=== PATIENT | female | born 1985 | race Caucasian/White ===

== ENCOUNTER 2020-12-15 07:04 | Day surgery (SDC) | payer BC ==
[2020-12-15] MEDS ORDERED: FENTANYL CITR 250 MCG/5 ML ONE (07:28)
[2020-12-15] MEDS ORDERED: GLYCOPYRROLATE 0.2 MG/ML SYR ONE (07:28)
[2020-12-15] MEDS ORDERED: propofoL 200 MG/20 ML VIAL IV ONE (07:28)
[2020-12-15] MEDS ORDERED: MIDAZOLAM HCL 2 MG/2 ML INJ ONE (07:28)
[2020-12-15] MEDS ORDERED: ONDANSETRON 4 MG/2 ML VIAL ONE (07:35)
[2020-12-15] MEDS ORDERED: ROCURONIUM 50 MG/5 ML VIAL IV ONE (07:37)
[2020-12-15] MEDS ORDERED: LIDOCAINE 2% MPF 5 ML VIAL ONE (07:38)
[2020-12-15] MEDS ORDERED: CEFOXITIN/SWI 1gm 1 GM/10 ML SYR ONE (07:47)
[2020-12-15] MEDS ORDERED: Ringers Lactate 1,000 ML IV ONE (07:47)
[2020-12-15] MEDS ORDERED: EPHEDRINE SULF 50 MG/ML VIAL ONE (08:35)
--- NOTE | 2020-12-15 09:06 | P.BOP ---
Preoperative diagnosis: acute cholecystitis, symptomatic cholelithiasis, s/p gastric stapling Postoperative diagnosis: same + intrabdominal adhesions Primary procedure: 1. Laparoscopic cholecystectomy Secondary procedure: 2. Laparoscopic lysis of adhesions Motor Route Carrier: Betty Bosch) Estimated blood loss: <10cc Specimen: gb Findings: see dicta Anesthesia: General Complications: None Transferred to: Recovery Room Condition: Good
[2020-12-15] MEDS: MEPERIDINE HCL 25 MG/ML SYR ONE ×4 (09:40→09:55)
--- NOTE | 2020-12-15 10:37 | OP ---
Date of Procedure: 12/15/2020 Surgeon: Mikey Moore MD Supersonic Engineer: JORDAN Stallworth. Preoperative Diagnoses: Acute cholecystitis, symptomatic cholelithiasis, history of gastric stapling . Postoperative Diagnoses: Acute cholecystitis, symptomatic cholelithiasis, history of gastric staplin g, intraabdominal adhesions. Procedure: Laparoscopic cholecystectomy, laparoscopic lysis of adhesions. Complications: None. Anesthesia: General plus local. Findings: The patient has multiple intraabdominal adhesions in the upper abdomen. Indications: This is a case of a 35-year-old patient comes to us with acute cholecystitis, symptomat ic cholelithiasis with gallstones and thickening gallbladder contracted. The benefits, alternatives, and risks of laparoscopic possible open cholecystectomy fully explained, which include, but not limi vivien to infection, bleeding, damage to adjacent structures, anesthesia complication, cholelithiasis, b ile leak, pancreatitis, OK, and even . She also understands this may not relieve the symptoms, she might need more than one surgical intervention. She understood, signed a consent. The patient u nderstands the risks of having to do lysis of adhesions since the patient has surgeries on the upper abdomen and she understood they may recur. She signed a consent. Procedure In Detail: The patient was brought to the operating room, placed in supine position. Anes thesia was done without complication. Abdominal area was prepped and draped in a sterile fashion. T he patient has an abdominoplasty done before, we trying to use incision in the periumbilical region f rom the previous abdominoplasty surgery. Incision was carried down to fascia, which was opened under direct vision. Peritoneum was encountered, opened under direct vision. Vicryl #1 placed inside the fascia. Cherise trocar was carefully introduced. No bleeding was obtained. I placed 3 more trocars in the right upper quadrant under direct visualization. This allowed me to visualize the area of th e right upper quadrant. This 3 trocars were put sequentially since the patient has multiple adhesion s, we proceeded to carefully remove adhesions and proceeded to put the trocar sequentially avoiding a ny enterotomies. Once the adhesion was taken down to make sure we have hemostasis control, hemostasi s was obtained with the help of Bovie cauterizer and also clips. Grasper placed in the fundus of the gallbladder and another grasper in the infundibulum retracting the gallbladder in the inferolateral fashion exposing the triangle of Calot and obtaining critical view. We still have some adhesions fro m omentum near the stomach to the gallbladder. So, the have to be taken care of with the help of End o Tyshawn and also hemostasis obtained with clips. The area was irrigated. The cystic duct and cysti c artery were clearly isolated free circumferentially and a connection between those and the gallblad gage were clearly identified. I proceeded to ligate those by using at least 3 clips proximal 1 clip d istal, ligation in middle, same was done with the cystic artery. A small little branch of the cystic artery was also ligated using same technique. Hepatic arteries and common bile duct were protected at all times. The gallbladder was removed from liver using Bovie cauterizer and removed from abdomin al cavity using EndoCatch through umbilical incision. The area was inspected once again, no bile tonya k, no bleeding, clips were intact. The area of lysis of adhesions are intact with no bleeding. At t hat moment, I proceeded to remove the trocars under direct vision, deflated pneumoperitoneum, closed the fascia with #1 Vicryl. Irrigated subcutaneous tissue, closed with 3-0 chromic and skin in a subc uticular fashion with 3-0 chromic and Steri-Strips on top. Sponge count and instrument counts are co rrect. The patient tolerated the procedure well. The patient was sent to Recovery in stable conditi on. MATEO/SOLO Voice ID: [id number] Report ID: [id number]
--- NOTE | 2020-12-15 10:43 | DS ---
Diagnoses: Acute cholecystitis, symptomatic cholelithiasis, status post gastric stapling, intraabdom inal adhesions. Procedure: Laparoscopic cholecystectomy, laparoscopic lysis of adhesions. Disposition: Home. Activity: As tolerated, no heavy lifting. Plan: Follow up in my office in 1 week. Call for appointment at [phone]. Keep area dry for 48 maritza rs, then may shower, keep Steri-Strips intact. Medications: See orders. MATEO/MODKirk Voice ID: [id number] Report ID: [id number]
[2020-12-15] MEDS ORDERED: CODEINE 30MG/APAP 300MG TAB ONE (10:46)
[2020-12-15 12:12] VITALS: BP 121/72; TEMP 97.5; O2SAT 99
== END 2020-12-15 11:15 | disposition home or self-care (01) ==
LOC: OR 07:04
PROVIDERS: ATTEND Surgery
PROC: 0DNU4ZZ Release Omentum, Percutaneous Endoscopic Approach (ICD-10-PCS; 2020-12-15)
PROC: 0FT44ZZ Resection of Gallbladder, Percutaneous Endoscopic Approach (ICD-10-PCS; principal; 2020-12-15 08:00)
DX: K80.10 Calculus of gallbladder with chronic cholecystitis without obstruction (principal); K21.9 Gastro-esophageal reflux disease without esophagitis; F32.9 Major depressive disorder, single episode, unspecified; Z20.822 Contact with and (suspected) exposure to COVID-19
CPT/HCPCS: 36415; 81025; 88304; 83690; 47562; 49329; U0003; J2704; J2250; J3010; J2175 ×2; J7120; J2405